=== PATIENT | male | born 1990 | race Two or more races ===

== ENCOUNTER 2018-01-30 19:17 | Emergency (ER) | payer BC ==
--- NOTE | 2018-01-30 20:44 | RAD ---
INDICATION: Chest pain. COMPARISON: There are no prior studies available for comparison. TECHNIQUE: Dual-energy PA and lateral views of the chest were obtained. FINDINGS: The heart is within normal limits in size. Mediastinal and hilar contours appear within normal limits. The lungs are clear. No pleural effusion or pneumothorax is seen. IMPRESSION: NO EVIDENCE FOR ACTIVE CARDIOPULMONARY DISEASE.
[2018-01-30 21:02] LABS: ABS Basophils 0.1 10^3/ul (0-0.2); ABS Eosinophils 0.2 10^3/ul (0-0.6); ABS Lymphocytes 1.7 10^3/ul (1.0-4.8); ABS Monocytes 0.6 10^3/ul (0-0.8); ABS Neutrophils 5.7 10^3/ul (1.5-7.7); ABS Nucleated RBC 0 10^3/ul; Eosinophil % 1.9 % (0-6); Hematocrit 49 % (42-52); Lymphocyte % 21.1 % (25-47); Mean Corpuscular HGB Conc 35 g/dl (31-36); Mean Corpuscular Hemoglobin 30 pg (27-31); Mean Corpuscular Volume 88 fL (80-94); Mean Platelet Volume 7.7 um3 (7.4-10.4); Nucleated Red Blood Cells % 0; Platelet Count 263 10^3/ul (150-450); Red Blood Count 5.59 10^6/ul (4.0-5.4); Red Cell Distribution Width 13 % (10.5-15); White Blood Count 8.2 10^3/ul (3.5-10.8)
[2018-01-30] MEDS ORDERED: ALPRAZolam TAB* 0.5 MG PO ONE (21:14)
[2018-01-30 21:29] LABS: EGFR Non-African American 103.9 (>60)
[2018-01-30] MEDS ORDERED: Potassium Chlor TAB* 20 MEQ TAB.ER PO ONE (22:10)
--- NOTE | 2018-01-30 22:31 | ED ---
Shi Ochoa Rebecca, scribed for Shon Garnett MD on 01/30/18 at 2105 . HPI Chest Pain - HPI Summary HPI Summary: Pt is a 27 y/o M who presents to ED c/o intermittent CP. Pain has been present for "a while" and has worsened in the last few days, waking him up from sleep 2 nights in a row. Pain is in the left anterior region with occasional radiation to the back and left shoulder. On triage, pain was moderate, ranked 7/10. Sx aggravated and alleviated by nothing. Additionally c/o diaphoresis. - History of Current Complaint Chief Complaint: EDChestPainROMI Time Seen by Provider: 01/30/18 20:59 Hx Obtained From: Patient Onset/Duration: Started Weeks Ago - "a while", Still Present, Worse Since - Few days ago Timing: Intermittent Current Severity: Moderate Pain Intensity: 7 Pain Scale Used: 0-10 Numeric Chest Pain Location: Left Anterior Chest Pain Radiates: Yes Chest Pain Radiates To:: Back, Shoulder - Left Aggravating Factor(s): Nothing Alleviating Factor(s): Nothing Associated Signs and Symptoms: Positive: Diaphoresis - Allergy/Home Medications Allergies/Adverse Reactions: Allergies Allergy/AdvReac Type Severity Reaction Status Date / Time No Known Allergies Allergy Verified 11/16/17 14:42 PMH/Surg Hx/FS Hx/Imm Hx Endocrine/Hematology History: Denies: Hx Diabetes, Hx Thyroid Disease Cardiovascular History: Denies: Hx Hypertension, Hx Pacemaker/ICD Respiratory History: Denies: Hx Asthma, Hx Chronic Obstructive Pulmonary Disease (COPD) GI History: Denies: Hx Ulcer History: Denies: Hx Renal Disease Sensory History: Denies: Hx Hearing Aid Psychiatric History: Reports: Hx Anxiety Denies: Hx Panic Disorder - Surgical History Surgery Procedure, Year, and Place: appendectomy. Lt FOOT - FX ( UNSURE IF ACTUAL SURG WAS DONE - DID HAVE A CAST - THIS WAS A CHILD) Infectious Disease History: No Infectious Disease History: Denies: Hx Hepatitis, Hx Human Immunodeficiency Virus (HIV), Traveled Outside the [place] in Last 30 Days - Family History Known Family History: Positive: Diabetes, Respiratory Disease - Emphysema - Social History Alcohol Use: Weekly Substance Use Type: Reports: Marijuana Smoking Status (MU): Never Smoked Tobacco Review of Systems Positive: Skin Diaphoresis Positive: Chest Pain All Other Systems Reviewed And Are Negative: Yes Physical Exam - Summary Physical Exam Summary: VITAL SIGNS: Reviewed. GENERAL: ~Patient is a well-developed and nourished male who is lying comfortable in the stretcher. Patient is not in any acute respiratory distress. HEAD AND FACE: No signs of trauma. No ecchymosis, hematomas or skull depressions. No sinus tenderness. EYES: PERRLA, EOMI x 2, No injected conjunctiva, no nystagmus. EARS: Hearing grossly intact. Ear canals and tympanic membranes are within normal limits. MOUTH: Oropharynx within normal limits. NECK: Supple, trachea is midline, no adenopathy, no JVD, no carotid bruit, no c- spine tenderness, neck with full ROM. CHEST: Symmetric, no tenderness at palpation LUNGS: Clear to auscultation bilaterally. No wheezing or crackles. CVS: Tachycardic, regular rhythm, S1 and S2 present, no murmurs or gallops appreciated. O2 saturation of 100%. ABDOMEN: Soft, non-tender. No signs of distention. No rebound no guarding, and no masses palpated. Bowel sounds are normal. EXTREMITIES: FROM in all major joints, no edema, no cyanosis or clubbing. NEURO: Alert and oriented x 3. No acute neurological deficits. Speech is normal and follows commands. SKIN: Dry and warm Triage Information Reviewed: Yes Vital Signs On Initial Exam: Initial Vitals Temp Pulse Resp BP Pulse Ox 97.7 F 118 20 152/99 99 01/30/18 19:19 01/30/18 19:19 01/30/18 19:19 01/30/18 19:19 01/30/18 19:19 Vital Signs Reviewed: Yes Diagnostics - Vital Signs Vital Signs Temp Pulse Resp BP Pulse Ox 01/30/18 19:19 97.7 F 118 20 152/99 99 - Laboratory Lab Results: Lab Results 01/30/18 Range/Units 20:57 WBC 8.2 (3.5-10.8) 10^3/ul RBC 5.59 H (4.0-5.4) 10^6/ul Hgb 17.0 (14.0-18.0) g/dl Hct 49 (42-52) % MCV 88 (80-94) fL MCH 30 (27-31) pg MCHC 35 (31-36) g/dl RDW 13 (10.5-15) % Plt Count 263 (150-450) 10^3/ul MPV 7.7 (7.4-10.4) um3 Neut % (Auto) 69.0 (38-83) % Lymph % (Auto) 21.1 L (25-47) % [place] % (Auto) 7.1 H (0-7) % Eos % (Auto) 1.9 (0-6) % Baso % (Auto) 0.9 (0-2) % Absolute Neuts (auto) 5.7 (1.5-7.7) 10^3/ul Absolute Lymphs (auto) 1.7 (1.0-4.8) 10^3/ul Absolute Monos (auto) 0.6 (0-0.8) 10^3/ul Absolute Eos (auto) 0.2 (0-0.6) 10^3/ul Absolute Basos (auto) 0.1 (0-0.2) 10^3/ul Absolute Nucleated RBC 0 10^3/ul Nucleated RBC % 0 Result Diagrams: 01/30/18 20:57 01/30/18 20:57 Lab Statement: Any lab studies that have been ordered have been reviewed, and results considered in the medical decision making process. - Radiology CXR Xray Interpretation: No Acute Changes - NO EVIDENCE FOR ACTIVE CARDIOPULMONARY DISEASE. ED physician reviewed this radiology report. Radiology Interpretation Completed By: Radiologist - EKG 1921 Cardiac Rate: Tachycardia - 119 bpm EKG Rhythm: Sinus Tachycardia EKG Interpretation: Normal axis. Normal interval. No ischemic changes. Re-Evaluation - Re-Evaluation First Eval Re-Evaluation Time: 22:20 Change: Improved Comment: Pt's sx have improved. Chest Pain Course/Dx - Course Assessment/Plan: Pt is a 27 y/o M who presents to ED c/o intermittent CP. Pain has been present for "a while" and has worsened in the last few days, waking him up from sleep 2 nights in a row. Pain is in the left anterior region with occasional radiation to the back and left shoulder. On triage, pain was moderate , ranked 7/10. Additionally c/o diaphoresis. CXR reveals no acute findings. EKG is sinus tachy, otherwise normal. Troponin of 0.00. In the ED course, pt was given Xanax and potassium chloride which improved symptoms. Pt will be D/C to home with Dx of atypical chest pain and anxiety. He understands and agrees. - Diagnoses Provider Diagnoses: Atypical chest pain, Anxiety Discharge - Sign-Out/Discharge Documenting (check all that apply): Discharge - Discharge - Discharge Plan Condition: Stable Disposition: HOME Patient Education Materials: Chest Pain (ED), Anxiety (ED) Referrals: Gama Garcai MD [Primary Care Provider] - 3 Days Additional Instructions: RETURN TO EMERGENCY DEPARTMENT FOR ANY NEW OR WORSENING SYMPTOMS The documentation as recorded by the Shi dorantes Rebecca accurately reflects the service I personally performed and the decisions made by , Shon Garnett MD.
[2018-01-30 23:10] VITALS: BP 139/90
== END 2018-01-30 22:26 | disposition home or self-care (01) ==
LOC: ED 19:17
DX: R07.89 Other chest pain (principal); F41.9 Anxiety disorder, unspecified
CPT/HCPCS: 36415; 71046; 80053; 82550; 84484; 85025; 86140; 93005; 99283; A9270-GY